=== PATIENT | female | born 1935 | race Caucasian/White ===

== ENCOUNTER 2017-10-23 19:49 | Inpatient (IN) | payer MEDICARE ==
[~2017-10-23] VITALS: Ht 160 cm; Wt 79.0 kg
--- NOTE | 2017-10-23 19:49 | NUR ---
BIB DAUGHTER, PT C/O ABD PAIN N/V SINCE 4PM, WITH SYNCOPE, WITNESSED, ABLE TO TALK. NO SOB NOTED. NO PAIN NOTED. A/OX3 VSS NAD. WILL CONTINUE TO MONITOR FOR ANY CHANGES
--- NOTE | 2017-10-23 20:20 | NUR ---
EKG AT BEDSIDE
[2017-10-23] MEDS ORDERED: ONDANSETRON HCL/PF 4 MG/2 ML VIAL IVP ONE (20:30)
[2017-10-23] MEDS ORDERED: IV NS 0.9% 1,000 ML BAG IV ONE (20:30)
--- NOTE | 2017-10-23 20:30 | NUR ---
STRAW HAT BRIM CUTTER OPERATOR AT BEDSIDE
--- NOTE | 2017-10-23 20:38 | NUR ---
BLOOD SENT TO LAB
[2017-10-23] MEDS ORDERED: ONDANSETRON HCL/PF 4 MG/2 ML VIAL ONE (20:39)
--- NOTE | 2017-10-23 20:44 | NUR ---
BED 324-1
[2017-10-23 21:06] LABS: BASOPHILS % (AUTO) 0.3 % (0.0-2.0); EOSINOPHILS # (AUTO) 0.1 /CMM (0.0-0.7); EOSINOPHILS % (AUTO) 0.7 % (0.0-6.0); HEMATOCRIT 42 % (33-45); HEMOGLOBIN 14.2 g/dL (11.5-14.8); LYMPHOCYTES # (AUTO) 0.5 /CMM (0.8-4.8); LYMPHOCYTES % (AUTO) 5.2 % (20.0-44.0); MEAN CORPUSCULAR HEMOGLOBIN 32 PG (26.0-33.0); MEAN CORPUSCULAR HGB CONC 34 g/dl (31.0-36.0); MEAN CORPUSCULAR VOLUME 95 fL (82-100); MONOCYTES # (AUTO) 0.8 /CMM (0.1-1.30); MONOCYTES % (AUTO) 7.2 % (2.0-12.0); NEUTROPHILS # (AUTO) 9.1 /CMM (1.8-8.9); NEUTROPHILS % (AUTO) 86.6 % (43.0-81.0); PLATELET COUNT (AUTO) 174 /CMM (150-450); RDW COEFFICIENT OF VARIATION 13.2 (11.5-15.0); RED BLOOD CELL COUNT(AUTO) 4.46 MIL/uL (4.0-5.2); WHITE BLOOD COUNT (AUTO) 10.5 K/uL (4.3-11.0)
[2017-10-23 21:15] LABS: INR 0.99 (0.85-1.15)
[2017-10-23 21:31] LABS: CALCIUM, SERUM 9.6 mg/dL (8.5-10.1); CARBON DIOXIDE 34 mmol/L (21-32); CHLORIDE 103 mmol/L (98-107); CREATININE 1.1 mg/dL (0.6-1.3); GLUCOSE 114 mg/dL (74-106); POTASSIUM 3.8 mmol/L (3.5-5.1); SODIUM SERUM 140 mmol/L (136-145); UREA NITROGEN, BLOOD 25 mg/dL (7-18)
[2017-10-23 21:36] LABS: ALANINE AMINOTRANSFERASE 17 U/L (12-78); ALBUMIN 3.7 g/dL (3.4-5.0); ALKALINE PHOSPHATASE 93 U/L (46-116); ASPARTATE AMINOTRANSFERASE 24 U/L (15-37); BILIRUBIN,DIRECT 0.2 mg/dL (0.0-0.2); BILIRUBIN,TOTAL 0.7 mg/dL (0.2-1.0); TOTAL PROTEIN, SERUM 7.5 g/dL (6.4-8.2)
[2017-10-23 21:38] LABS: TROPONIN I < 0.017 ng/mL (0.00-0.056)
[2017-10-23] MEDS ORDERED: BUME1TAB4 PO (23:01)
[2017-10-23] MEDS ORDERED: TIOT18CA3 INH (23:02)
[2017-10-23] MEDS ORDERED: CARV12.52 PO (23:02)
[2017-10-23] MEDS ORDERED: SIMV10TA6 PO (23:02)
[2017-10-23] MEDS ORDERED: POTA-10 PO (23:02)
[2017-10-23] MEDS ORDERED: ASPI-1152 PO (23:02)
[2017-10-23] MEDS ORDERED: LOSA50TA21 PO (23:02)
[2017-10-23] MEDS ORDERED: ALLO100T PO (23:02)
[2017-10-23] MEDS ORDERED: VIT1CAPS27 PO (23:02)
[2017-10-23] MEDS ORDERED: PANT40TA4 PO (23:02)
[2017-10-23] MEDS ORDERED: GABA600T2 PO (23:02)
--- NOTE | 2017-10-23 23:05 | NUR ---
ADMISSION NOTES: RECEIVED REPORT FROM JOAN CAVANAUGH, PT CAME IN FO SYNCOPE N,V, ABDOMINAL PAIN. BROUGHT TO THE UNIT VIA GURNEY, PLACED IN BED, KEPT COMFORTABLE. PT IS A/O X4, ON RA, DENIES ANY SOB, STATED SHE DOESNT HAVE ANY PAIN AT THIS TIME, SHE STATED THAT USUALLY HER ABDOMINAL PAIN MOSTLY DESCRIBED LIKE MENSTRUAL CRAMP, DULL ACHING LIKE 5/10 SCALE. LEFT HAND IV ACCESS PATENT AND FLUSHING WELL, ON HL. ORIENTED PT TO UNIT POLICY AND HOURLY ROUNDING, INVENTORY OF BELONGING COMPLETED BY YUE SANDHU, SKIN CHECKED PERFORMED AND NO SKIN ISSUE NOTED, NO PRESSURE ULCER NOTED. VS TAKEN AND RECORDED. SAFETY PRECAUTIONS FOR FALL INITIATED CALL LIGHT IN REACH, WILL CONTINUE TO MONITOR
[2017-10-23 23:30] VITALS: BP 137/70
[2017-10-24] VITALS (9 sets, daily range): BP systolic 129–151; BP diastolic 64–91
[2017-10-24 00:01] LABS: APPEARANCE,URINE SL CLOUDY (CLEAR); BILIRUBIN,URINE NEGATIVE (NEGATIVE); BLOOD, URINE NEGATIVE Ery/uL (NEGATIVE); COLOR,URINE YELLOW (YELLOW); KETONES,URINE TRACE (NEGATIVE); LEUKOCYTE ESTERASE ,URINE NEGATIVE (NEGATIVE); NITRITE, URINE NEGATIVE (NEGATIVE); PROTEIN,URINE NEGATIVE (NEGATIVE); UGLUCOSE NEGATIVE (NEGATIVE); UROBILINOGEN,URINE 0.2 EU/dL (0.2)
[2017-10-24] MEDS ORDERED: OMEG1CAP PO (00:06)
[2017-10-24] MEDS ORDERED: ACET-2605 PO (00:06)
[2017-10-24] MEDS ORDERED: OMEG1CAP18 PO (00:06)
[2017-10-24] MEDS ORDERED: CYAN10009 PO (00:06)
[2017-10-24] MEDS ORDERED: CHOL200016 PO (00:06)
[2017-10-24] MEDS ORDERED: CPM/1TAB PO (00:06)
[2017-10-24] MEDS ORDERED: CA/D1TAB7 PO (00:06)
[2017-10-24 00:16] LABS: RBC,URINE NONE SEEN /HPF (0-2); WBC,URINE 0-2 /HPF (0-3)
[2017-10-24 00:17] LABS: BACTERIA,URINE None seen /HPF (None Seen); SQUAMOUS EPITHELIAL CELL,UR Moderate /HPF (None Seen)
--- NOTE | 2017-10-24 00:44 | NUR ---
rn notes: fashion consultant sales md currently in the unit, inside pt's room , doing h&p and assessment
[2017-10-24] MEDS: ZOLPIDEM TARTRATE 5 MG TABLET PO PRN ×2 (00:51→22:38)
--- NOTE | 2017-10-24 00:51 | NUR ---
prn ambien: pt requested for sleeping pill, order ambien, prn ambien 5mg administered as ordered
--- NOTE | 2017-10-24 02:41 | NUR ---
RN NOTES: SEEN PT ASLEEP, APPEARS CALM AND COMFORTABLE
--- NOTE | 2017-10-24 06:52 | NUR ---
TRUER PINION AND WHEEL CLOSING NOTES: PT IN BED, SLEEPING, AROUSES TO TACTILE STIMULI, PT REQUESTED TO HAVE HER BLOOD DRAW AT 0800AM, EXPLAIN TO THE PT ABOUT IMPORTANCE OF HAVING BLOOD DRAW AT EXACT TIME SO MD CAN SEE THE RESULT BEFORE THEY MAKE THEIR AM ROUNDS. PT STILL REQUESTED TO HAVE IT DONE AT 0800AM, STATING SHE SLEPT LATE LAST NIGHT DUE TO ADMISSION TO THE HOSPITAL. LEFT HAND IV ACCESS REMAINS PATENT AND FLUSHING WELL, ON HL. REMAINS ON SINUS RHYTHM HR 70, APPEARS CALM AND COMFORTABLE, NO FACIAL GRIMACE NOTED. BLE OFFLOADED. VS REMAINS STABLE, NEEDS ATTENDED. SAFETY PRECAUTIONS FOR FALL REMAINS ENGAGED, CALL LIGHT WITHIN REACH, WILL ENDORSE TO DAY RN FOR JSAON.
--- NOTE | 2017-10-24 07:00 | NUR ---
CAR ELECTRONICS INSTALLER NOTES Patient in bed alert/oriented x4. No acute distress noted. Breathing unlabored. No SOB noted. IV access patent and intact, No redness or swelling on IV site. HOB elevated. Safety measures in place. Call light within reach. Will continue to monitor accordingly.
[2017-10-24] MEDS: PANTOPRAZOLE 40 MG TABLET.DR PO SCH (08:36)
[2017-10-24] MEDS: IV NS 0.9% 1,000 ML IV SCH ×2 (08:37→15:11)
[2017-10-24] MEDS: ASPIRIN EC 81 MG TABLET.DR PO SCH (08:48)
[2017-10-24] MEDS: ALLOPURINOL 100 MG TABLET PO SCH (08:49)
[2017-10-24] MEDS: POTASSIUM CHLORIDE 10 MEQ TABLET.SA PO SCH (08:49)
[2017-10-24] MEDS: LOSARTAN POTASSIUM 50 MG TABLET PO SCH ×2 (08:50→17:09)
[2017-10-24] MEDS: CARVEDILOL 12.5 MG TABLET PO SCH ×2 (08:50→17:09)
[2017-10-24] MEDS: GABAPENTIN 300 MG CAPSULE PO SCH ×3 (08:53→17:09)
[2017-10-24] MEDS ORDERED: Medication Not On Formulary EA (Gabapentin 600 MG) PO SCH (09:00)
[2017-10-24] MEDS ORDERED: BUMETANIDE (1 MG) 1 MG TABLET PO SCH (09:00)
[2017-10-24 09:43] LABS: BASOPHILS % (AUTO) 0.3 % (0.0-2.0); EOSINOPHILS # (AUTO) 0.1 /CMM (0.0-0.7); EOSINOPHILS % (AUTO) 1.8 % (0.0-6.0); HEMATOCRIT 36 % (33-45); LYMPHOCYTES # (AUTO) 0.7 /CMM (0.8-4.8); LYMPHOCYTES % (AUTO) 12.5 % (20.0-44.0); MEAN CORPUSCULAR HEMOGLOBIN 32 PG (26.0-33.0); MEAN CORPUSCULAR HGB CONC 33 g/dl (31.0-36.0); MEAN CORPUSCULAR VOLUME 97 fL (82-100); MONOCYTES # (AUTO) 0.5 /CMM (0.1-1.30); MONOCYTES % (AUTO) 7.5 % (2.0-12.0); NEUTROPHILS # (AUTO) 4.7 /CMM (1.8-8.9); NEUTROPHILS % (AUTO) 77.9 % (43.0-81.0); PLATELET COUNT (AUTO) 158 /CMM (150-450); RDW COEFFICIENT OF VARIATION 13.8 (11.5-15.0); RED BLOOD CELL COUNT(AUTO) 3.75 MIL/uL (4.0-5.2)
[2017-10-24 10:08] LABS: ALANINE AMINOTRANSFERASE 19 U/L (12-78); ALKALINE PHOSPHATASE 73 U/L (46-116); ASPARTATE AMINOTRANSFERASE 21 U/L (15-37); BILIRUBIN,TOTAL 0.5 mg/dL (0.2-1.0); CALCIUM, SERUM 8.8 mg/dL (8.5-10.1); CARBON DIOXIDE 34 mmol/L (21-32); CHLORIDE 106 mmol/L (98-107); GLUCOSE 126 mg/dL (74-106); MAGNESIUM 1.4 mg/dL (1.8-2.4); PHOSPHORUS 3.4 mg/dL (2.5-4.9); POTASSIUM 3.7 mmol/L (3.5-5.1); SODIUM SERUM 144 mmol/L (136-145); TOTAL PROTEIN, SERUM 6.3 g/dL (6.4-8.2); UREA NITROGEN, BLOOD 20 mg/dL (7-18)
[2017-10-24 10:10] LABS: TROPONIN I < 0.017 ng/mL (0.00-0.056)
[2017-10-24 10:37] LABS: CHOLESTEROL 111 mg/dL (<200); HDL CHOLESTEROL 47 mg/dL (40-60); LDL 50 mg/dL (0-99); THYROID STIMULATING HORMONE 0.547 uIU/mL (0.358-3.74); TRIGLYCERIDES 117 mg/dL (30-150)
[2017-10-24] MEDS: Magnesium 1GM/D5W 100ML PREMIX 100 ML IV SCH ×2 (16:16→17:22)
--- NOTE | 2017-10-24 18:30 | NUR ---
RN CLINICAL DOCUMENTATION NOTES Patient in bed alert, oriented, verbally responsive.Daughter at bedside. Denied any pain at this time. No acute distress noted. Breathing unlabored. IV access patent and intact, no redness or swelling on IV site.HOB elevated. Safety measures in place. Due medication given, no ASE noted. Call light within reach. Will continue to monitor accordingly.Will endorse to incoming shift for continuity of care.
--- NOTE | 2017-10-24 19:20 | NUR ---
RN CLOSING NOTES RECEIVED PATIENT AWAKE IN BED WITH FAMILY AT BEDSIDE. A/O X4. NO SIGNS OF DISTRESS OR DISCOMFORT. BREATHING EVEN AND UNLABORED. IV ACCESS IN L HAND WITH NS INFUSING, PATENT AND INTACT, NO SIGNS OF REDNESS OR INFILTRATION. BED IN LOW LOCKED POSITION WITH SIDE RAILS X2. CALL LIGHT WITHIN REACH. WILL CONTINUE TO MONITOR. Addendum: 10/25/17 at 0655 by TAMI PANDYA RN OPENING NOTES
[2017-10-24] MEDS ORDERED: SIMVASTATIN 10 MG TABLET PO SCH (22:00)
[2017-10-25] MEDS: ACETAMINOPHEN 325 MG TABLET PO PRN ×2 (00:47→10:15)
--- NOTE | 2017-10-25 06:51 | NUR ---
RN CLOSING NOTES PATIENT RESTING IN BED, EASILY AROUSABLE. A/O X4. NO SIGNS OF DISTRESS OR DISCOMFORT. BREATHING EVEN AND UNLABORED. IV ACCESS IN R WRIST, PATENT AND INTACT, NO SIGNS OF REDNESS OR INFILTRATION. BED IN LOW LOCKED POSITION WITH SIDE RAILS X2. CALL LIGHT WITHIN REACH. WILL CONTINUE TO MONITOR. Addendum: 10/25/17 at 0653 by TAMI PANDYA RN NO SIGNIFICANT CHANGES THROUGH THE NIGHT. WILL ENDORSE TO AM SHIFT FOR JASON.
[2017-10-25 07:48] LABS: BASOPHILS % (AUTO) 0.2 % (0.0-2.0); EOSINOPHILS # (AUTO) 0.2 /CMM (0.0-0.7); EOSINOPHILS % (AUTO) 3.8 % (0.0-6.0); HEMATOCRIT 34 % (33-45); HEMOGLOBIN 11.3 g/dL (11.5-14.8); LYMPHOCYTES # (AUTO) 0.8 /CMM (0.8-4.8); LYMPHOCYTES % (AUTO) 17.3 % (20.0-44.0); MEAN CORPUSCULAR HEMOGLOBIN 33 PG (26.0-33.0); MEAN CORPUSCULAR HGB CONC 34 g/dl (31.0-36.0); MEAN CORPUSCULAR VOLUME 98 fL (82-100); MONOCYTES # (AUTO) 0.4 /CMM (0.1-1.30); NEUTROPHILS # (AUTO) 3.1 /CMM (1.8-8.9); NEUTROPHILS % (AUTO) 69.7 % (43.0-81.0); PLATELET COUNT (AUTO) 132 /CMM (150-450); RDW COEFFICIENT OF VARIATION 14.1 (11.5-15.0); RED BLOOD CELL COUNT(AUTO) 3.43 MIL/uL (4.0-5.2); WHITE BLOOD COUNT (AUTO) 4.5 K/uL (4.3-11.0)
[2017-10-25 08:00] VITALS: BP 146/79
[2017-10-25 08:11] LABS: TROPONIN I < 0.017 ng/mL (0.00-0.056)
[2017-10-25 08:25] LABS: ALANINE AMINOTRANSFERASE 16 U/L (12-78); ALBUMIN 2.8 g/dL (3.4-5.0); ALKALINE PHOSPHATASE 67 U/L (46-116); ASPARTATE AMINOTRANSFERASE 19 U/L (15-37); BILIRUBIN,TOTAL 0.3 mg/dL (0.2-1.0); CALCIUM, SERUM 8.4 mg/dL (8.5-10.1); CARBON DIOXIDE 32 mmol/L (21-32); CHLORIDE 113 mmol/L (98-107); CREATININE 0.8 mg/dL (0.6-1.3); GLUCOSE 101 mg/dL (74-106); MAGNESIUM 1.9 mg/dL (1.8-2.4); POTASSIUM 4.5 mmol/L (3.5-5.1); SODIUM SERUM 149 mmol/L (136-145); UREA NITROGEN, BLOOD 17 mg/dL (7-18)
[2017-10-25] MEDS: GABAPENTIN 300 MG CAPSULE PO SCH ×2 (08:39→14:14)
[2017-10-25] MEDS: CARVEDILOL 12.5 MG TABLET PO SCH (08:39)
[2017-10-25] MEDS: PANTOPRAZOLE 40 MG TABLET.DR PO SCH (08:39)
[2017-10-25] MEDS: ALLOPURINOL 100 MG TABLET PO SCH (08:39)
[2017-10-25] MEDS: POTASSIUM CHLORIDE 10 MEQ TABLET.SA PO SCH (08:39)
[2017-10-25] MEDS: ASPIRIN EC 81 MG TABLET.DR PO SCH (08:39)
[2017-10-25 09:00] VITALS: BP 166/89
[2017-10-25 09:05] VITALS: BP 150/82
[2017-10-25 09:10] VITALS: BP 148/88
[2017-10-25 10:01] VITALS: BP 166/89
[2017-10-25] MEDS: LOSARTAN POTASSIUM 50 MG TABLET PO SCH (10:01)
--- NOTE | 2017-10-25 10:15 | NUR ---
RN NOTES ADMINISTERED TYLENOL 650 MG PO PRN FOR BILATERAL LOWER EXTREMITIES PAIN 5/10, PER PATIENT REQUEST, V/S TAKEN BP -150/86, CONTINUED MONITORING.
[2017-10-25 10:38] LABS: IRON, SERUM 38 ug/dl (50-175); TOTAL IRON BINDING CAPACITY 242 ug/dl (250-450)
[2017-10-25 10:48] LABS: FERRITIN 91 ng/mL (8-388)
--- NOTE | 2017-10-25 11:30 | NUR ---
RN NOTES PATIENT IN THE ROOM SITTING IN THE CHAIR, MEDICATION WERE ADMINISTERED FOR PAIN EFFECTIVE, PATIENT GOING TO D/C HOME.
--- NOTE | 2017-10-25 16:21 | NUR ---
DISCHARGE NOTES PATIENT GOING TO D/C HOME AT THIS TIME. PATIENT A/O X4, MED COMPLIANT, V/S STABLE, MEDICALLY STABLE, NO C/O PAIN AT THIS SLIM. MED RECONCILIATION AND DISCHARGE ORDER REVIEWED AND EXPLAINED TO PATIENT , AND DAUGHTER. PATIENT VERBALIZED UNDERSTANDING. BELONGING RETURNED BACK TO THE PATIENT. PATIENT ESCORTED TO THE LOBBY FOR SAFETY, PATIENT SIGN PAPERWORK, PATIENT WAREHOUSE OPERATIONS ASSOCIATE BY DAUGHTER NAME ALONSO PHONE # [phone]. PATIENT WILL FOLLOW PRIMARY MD.
== END 2017-10-25 16:27 | disposition home or self-care (01) | DRG 392 ==
LOC: ER 19:57 → TELE 21:49 → MED 10-24 07:45
PROVIDERS: ADMIT Internal Medicine; ATTEND Internal Medicine
DX: A08.4 Viral intestinal infection, unspecified (principal); G62.9 Polyneuropathy, unspecified; E86.0 Dehydration; M48.00 Spinal stenosis, site unspecified; J44.9 Chronic obstructive pulmonary disease, unspecified; E78.5 Hyperlipidemia, unspecified; Z87.891 Personal history of nicotine dependence; Z90.710 Acquired absence of both cervix and uterus; Z85.42 Personal history of malignant neoplasm of other parts of uterus; G89.29 Other chronic pain; I71.4 Abdominal aortic aneurysm, without rupture; E66.9 Obesity, unspecified; Z68.31 Body mass index [BMI] 31.0-31.9, adult; I10 Essential (primary) hypertension; Z96.643 Presence of artificial hip joint, bilateral; Z96.653 Presence of artificial knee joint, bilateral; M10.9 Gout, unspecified
CPT/HCPCS: 36415; 71045-TC; 80048-TC; 80053-TC; 80061-TC; 80076-TC; 81000-TC; 82728-TC; 83540-TC; 83735-TC; 84100-TC; 84443-TC; 84484-TC; 85025-TC; 85730-TC; 87081-TC; 87086-TC; 87186-TC; 93307-TC; A4606; J2405; J3475; J7030; Z7610